=== PATIENT | male | born 1970 | race Caucasian/White ===

== ENCOUNTER 2018-02-25 21:36 | Emergency (ER) | payer OTHER ==
[~2018-02-25] VITALS: Ht 182.8 cm; Wt 113.4 kg
--- NOTE | ~2018-02-25 | EKG ---
[place], [place] ELECTROCARDIOGRAM REPORT NAME: SADAF AZUL UNIT #: [id number] ROOM: DOCTOR: KASHIF FLETCHER MD BIRTHDATE: [birth year] DOS: 02/25/2018 TIME: 2152 hours FINDINGS: 1. Sinus tachycardia at 104 beats per minute. 2. The tracing is otherwise normal. 3. No previous tracing is available for comparison. KASHIF FLETCHER MD CM:EKGRPT:ELECTROCARDIOGRAM REPORT [id number] KASHIF FLETCHER MD
[~2018-02-25 21:36] MED LIST: APAP/OXYCODONE1 TA2 PO; LISINOPRIL10 M1 PO
[2018-02-25 23:58] LABS: BASO % 0.3 % (0.0-1.0); EOS # 0.1 10*3/uL (0.0-0.4); EOS % 0.4 % (1.0-4.0); HEMATOCRIT 43.8 % (42.0-52.0); HEMOGLOBIN 14.6 g/dl (14.0-18.0); LYMPH # 1.8 10*3/uL (1.3-4.4); MEAN CELL VOLUME 90.7 fl (80.0-94.0); MEAN CORPUSCULAR HGB 30.2 pg (27.0-31.0); MEAN CORPUSCULAR HGB CONC 33.3 g/dl (33.0-37.0); MEAN PLATELET VOLUME 7.8 fl (9.6-12.3); MONO # 1.2 10*3/uL (0.1-1.0); MONO % 8.7 % (3.0-9.0); NEUT # 10.7 10*3/uL (2.3-7.9); PLATELET COUNT AUTOMATED 342 10*3/uL (130-400); RED BLOOD COUNT 4.83 10*6/uL (4.50-5.90); RED CELL DISTRI WIDTH 12.5 % (0-14.5); WHITE BLOOD COUNT 13.9 10*3/uL (4.8-10.8)
[2018-02-26 00:09] LABS: INTERNATIONAL NORM RATIO 0.9 (2.0-3.5)
[2018-02-26 00:20] LABS: ALBUMIN 3.7 gm/dl (3.1-4.5); BUN 15 mg/dl (7-24); CHLORIDE 102 mmol/L (98-107); LIPASE 130 U/L (73-393); POTASSIUM 4.1 mmol/L (3.5-5.1); SGOT/AST 16 IU/L (3-35); SGPT/ALT 26 U/L (12-78); SODIUM 136 mmol/L (136-145)
[2018-02-26 00:21] LABS: ALKALINE PHOSPHATASE 65 U/L (45-117); TOTAL PROTEIN 7.8 gm/dL (6.4-8.2)
[2018-02-26 00:23] LABS: TROPONIN I < 0.015 ng/ml (<0.045)
[2018-02-26] MEDS ORDERED: KETOROLAC10 MG PO (01:21)
[2018-02-26] MEDS ORDERED: ZITHROMAX250 MG PO (01:21)
== END 2018-02-26 01:30 | disposition home or self-care (01) ==
LOC: ED 21:36
PROVIDERS: Emergency Medicine Emergency Medical Services
DX: S29.011A Strain of muscle and tendon of front wall of thorax, initial encounter (principal); J40 Bronchitis, not specified as acute or chronic; I10 Essential (primary) hypertension; Z79.899 Other long term (current) drug therapy; X58.XXXA Exposure to other specified factors, initial encounter; Y93.89 Activity, other specified; Y92.89 Other specified places as the place of occurrence of the external cause; Y99.8 Other external cause status

== ENCOUNTER → 2020-07-21 | Outpatient (CLI) | payer OTHER ==
[~2020-07-21] MED LIST changes: +KETOROLAC10 MG PO; +ZITHROMAX250 MG PO
== END | disposition home or self-care (01) ==
LOC: COVID19 11:31
PROVIDERS: ATTEND Family Medicine
DX: Z20.828 Contact with and (suspected) exposure to other viral communicable diseases (principal)